=== PATIENT | male | born 1955 | race African-American/Black ===

== ENCOUNTER 2020-02-09 15:20 | Emergency (ER) | payer OTHER ==
[~2020-02-09] VITALS: Ht 180.3 cm; Wt 70.3 kg
[2020-02-09 15:27] VITALS: BP 102/78
[2020-02-09 17:31] VITALS: BP 105/67
== END 2020-02-09 17:30 | disposition home or self-care (01) ==
LOC: MED 15:20
DX: R10.9 Unspecified abdominal pain (principal)
CPT/HCPCS: 99284